=== PATIENT | female | born 1970 | race Caucasian/White ===

== ENCOUNTER 2017-04-03 09:22 | Day surgery (SDC) | payer BC ==
[2017-04-03] VITALS (13 sets, daily range): BP systolic 111–144; BP diastolic 61–91; PULSE 56–82; RESP 11–27; Ht 167.6 cm; Wt 58.9 kg
[~2017-04-03] VITALS: Ht 167.6 cm; Wt 58.9 kg
--- NOTE | 2017-04-03 10:50 | HPN ---
Date/Time of Note Date/Time of Note DATE: 04/03/17 TIME: 10:50 Interval H&P Admission Note Pt. seen H&P reviewed: No system changes DEZ ISLAS MD Apr 03, 2017 10:50
[2017-04-03] MEDS ORDERED: ROPIVACAINE 0.5 % 30 ML VIAL ONE (10:58)
[2017-04-03] MEDS ORDERED: BUPIVACAINE 0.5% (SDV) 30 ML INJ ONE (10:58)
[2017-04-03] MEDS ORDERED: NEOMYC/POLYMYX/BACIT 30 GM OINT ONE (10:58)
[2017-04-03] MEDS ORDERED: CEFAZOLIN 1 GM INJ ONE (11:01)
[2017-04-03] MEDS ORDERED: MIDAZOLAM 1 MG/ML 2 ML INJ ONE (11:01)
[2017-04-03] MEDS ORDERED: LIDOCAINE 2% (SDV) 5 ML INJ ONE (11:01)
[2017-04-03] MEDS ORDERED: PROPOFOL 20 ML ONE (11:01)
[2017-04-03] MEDS ORDERED: FENTAnyl 50 MCG/ML VIAL ONE ×2 (11:01→11:29)
[2017-04-03] MEDS ORDERED: ONDANSETRON 4 MG INJ ONE (11:07)
[2017-04-03] MEDS ORDERED: DEXAMETHASONE 4 MG/ML 1 ML INJ ONE (11:07)
[2017-04-03] MEDS ORDERED: HEPARIN 1000 UNITS/ML 10 ML INJ ONE (11:33)
[2017-04-03] MEDS ORDERED: CA CHLORIDE 10% 10 ML SYRINGE ONE (11:33)
[2017-04-03] MEDS ORDERED: THROMBIN 5000 UNIT VIAL ONE (11:55)
[2017-04-03] MEDS ORDERED: KETOROLAC 30 MG INJ ONE (12:22)
--- NOTE | 2017-04-03 12:33 | OPR ---
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 Tourniquet Time: 35 min at 250 mm HG Estimated Blood Loss: minimal Transfusion none Specimen none Grafts/Implants Arthrex BMAC Complications none Pt Condition Post Procedure: stable Disposition: PACU Procedure Description INDICATIONS: Patient is a 47-year-old female with ongoing Left knee pain. The patient has complained of having catching, clicking and locking symptoms over the lateral aspect of the knee with no relief with physical therapy or anti- inflammatory. Patient has decided to proceed with surgery. RISK NOTE: Patient was explained the risks and benefits of the surgery in the patients quileute language, including not limited to infection, bleeding, loss of limb, loss of life, need for future surgery, risk of anesthesia, risk of injury to the blood vessels and nerves, ligaments or tendons, and risk of deep vein thrombosis. Patient understood these risks and wished to proceed with the surgery. OPERATIVE NOTE: The correct operative site was noted and marked in the preoperative holding area. The patient was then brought back into the operative theater, placed supine on the operative table. Left knee was examined under anesthesia. Range of motion was 0-125. There is no varus or valgus or anterior or posterior instability. There is crepitus noticed at the patellofemoral joint. Tourniquet was then placed on the operative extremity thigh non-sterilely. Patient was then given preoperative antibiotics and then prepped and draped in normal sterile fashion. A timeout was taken and all parties in the room agreed it was the correct patient, correct extremity and correct procedure. Initially attention was towards the left iliac crest. Using a Jamshidi needle approximately 60 cc of bone marrow aspirate was removed from the left iliac crest. This was sent to the back table for centrifugation to become bone marrow aspirate concentrate. 10 cc of 0.25% Marcaine without epi was injected into the anteriorlateral and anteriormedial portal sites prior to incision. Standard anterior lateral portal was created and the knee joint was entered with a blunt tipped trocar, followed by 30 arthroscope. Inflow was achieved with a pump and the pressure maintained at approximately 50 mmHg. A routine arthroscopic surgery was performed. Suprapatella pouch was unremarkable. The undersurface of the patella showed advanced grade 1 chondromalacia The medial and lateral gutters were visualized. There were no loose bodies seen. There is an inflamed hypertrophic plica noted in the anterior and superior medial aspect of the knee. The popliteus hiatus was entered and was normal. Lateral compartment was entered and grade 1 chondromalacia was seen on the lateral tibial plateau and femoral condyle. Scope was then brought into the intercondylar notch and an anteromedial portal was made. Shaver was brought into the knee and small amount of fat pad and scar tissue was initially gently debrided. The anterior cruciate ligament was intact and probed. The knee was brought into a figure 4 position and the lateral compartment was entered. The articular surface of the lateral femoral condyle and lateral tibial plateau revealed diffuse grade 2/3 chondromalacia. There was a bucket-handle lateral meniscal tear extending from the posterior horn to the anterior horn that was probed and found to flip into the notch. Meniscal tear was then debrided gently with a motorized shaver and basket forceps, the anterior horn demonstrated a degenerative tear and fibrillation pattern. The motorized shaver and basket biters were used to smooth the remaining meniscal rim, with care to maintain the peripheral meniscal rim. A probe was introduced and this was carefully probed and was found to be stable. Chondroplasty was then carried out along the weightbearing aspect of the lateral femoral condyle and lateral tibial plateau with taking care to remove only loose articular cartilage debris and preserve functional articular cartilage. The meniscus was then probed and found to be stable and the bucket-handle tear had been removed as it was not able to be repaired. The lateral compartment was reentered and the loose chondral debris was debrided with motorized shaver. Attention was brought to the medial compartment and there was no evidence of any chondromalacia in the medial meniscus and be stable and intact to probing Attention was then directed back to the patella femoral joint and a chondroplasty was carried out along the weightbearing aspect of the trochlea and undersurface of the patella to again remove loose debris and maintain functional active articular cartilage. The knee was then irrigated with additional 2 L of lactated Ringers solution. Excess fluid was then drained. Bone marrow aspirate concentrate was then injected into the knee Range of motion was then attempted showing 0- 125 degrees of motion The portal sites were closed with 4-0 Monocryl and Steri-Strips and dressed with Xeroform and triple antibiotic ointment. The knee was then injected with 20 cc of 0.5% plain ropivacaine. A dry sterile dressing was then applied followed by a bulky soft bandage in a thigh-high Lito stocking. At the completion of the surgery patient had palpable pulses, soft arms and brisk cap refill. The patient tolerated the procedure well and was taken to the PACU without any complications. All sponge and needle counts were correct. Patient will begin pain medicine and 48 hours of antibiotics as well as aspirin 81 mg for the duration of 4 weeks postoperatively An assistant cross country coach orthopedic surgeon was needed for this case to assist with positioning of the limb during repair of the injury as well as assisting in treatment of the lateral bucket-handle meniscal tear. Without a qualified orthopedic surgical services assistant in this case the case would be significantly more complex and longer. DEZ ISLAS MD Apr 03, 2017 12:33
[2017-04-03] MEDS ORDERED: LABETALOL HCL 20MG INJ IV PRN (13:00)
[2017-04-03] MEDS ORDERED: METOCLOPRAMIDE 10 MG INJ IV PRN (13:00)
[2017-04-03] MEDS ORDERED: ALBUTEROL 0.083% (NEB) 2.5 MG/3 ML AMP HHN PRN (13:00)
[2017-04-03] MEDS ORDERED: DIPHENHYDRAMINE 50 MG INJ IV PRN (13:00)
[2017-04-03] MEDS ORDERED: FENTAnyl 50 MCG/ML VIAL IV PRN ×3 (13:00)
[2017-04-03] MEDS ORDERED: ONDANSETRON 4 MG INJ IV PRN (13:00)
[2017-04-03] MEDS ORDERED: MEPERIDINE 25 MG INJ IV PRN (13:00)
[2017-04-03] MEDS ORDERED: OXYCODONE/ACETAMINOPHEN (5/325) TAB PO PRN ×2 (13:00)
[2017-04-03] MEDS ORDERED: DIPHENHYDRAMINE 50 MG INJ ONE (13:14)
== END 2017-04-03 15:40 | disposition home or self-care (01) ==
LOC: SDS 09:22
PROVIDERS: ATTEND Orthopaedic Surgery
DX: S83.282A Other tear of lateral meniscus, current injury, left knee, initial encounter (principal); M94.262 Chondromalacia, left knee; X58.XXXA Exposure to other specified factors, initial encounter; Y93.89 Activity, other specified; Y92.89 Other specified places as the place of occurrence of the external cause; Y99.8 Other external cause status
CPT/HCPCS: 29881; 38220; 84703; J0690; J1100; J1200; J1644; J2250; J2405; J2795; J3010; Z7512; Z7610; J1885